=== PATIENT | female | born 1975 | race Caucasian/White ===

== ENCOUNTER 2021-10-06 09:07 | Emergency (ER) | payer OTHER ==
[~2021-10-06] VITALS: Ht 172.7 cm; Wt 100.0 kg
[2021-10-06] MEDS ORDERED: HYDROCODONE/ACETAMINOPHEN 5/325MG TABLET PO STA (09:18)
[2021-10-06] MEDS ORDERED: IBUPROFEN 800MG TABLET PO ONE (11:30)
[2021-10-06] MEDS ORDERED: MORPHINE SULFATE 4 MG/ML CPJ (NOT FOR IM USE) IV STA (12:07)
[2021-10-06 13:02] LABS: CHLORIDE 109 mEq/L (98-107)
[2021-10-06] MEDS ORDERED: MORPHINE SULFATE 10 MG/ML CPJ IM ONE (13:15)
[2021-10-06 13:39] LABS: HCG SCREEN NEGATIVE
[2021-10-06 14:24] LABS: BASOPHILS % 0.5 % (0.0-2.0); EOSINOPHILS % 0.3 % (0.0-5.0); HEMOGLOBIN. 13.3 g/dL (12.0-16.0); LYMPHOCYTES % 17.3 % (20.0-50.0); MEAN CORPUSCULAR HEMOGLOBIN 30.6 pg (28.0-32.0); MEAN CORPUSCULAR VOLUME 91.9 fL (81.0-99.0); MEAN PLATELET VOLUME 7.9 fl (7.4-10.4); MONOCYTES % 4.4 % (2.0-8.0); NEUTROPHILS % 77.5 % (40.0-76.0); PLATELET 262 x1000/uL (130-400); RED BLOOD CELL COUNT 4.35 mill/uL (4.2-5.4); RED CELL DISTRIBUTION WIDTH 14.1 % (11.6-14.6)
[2021-10-06] MEDS ORDERED: ACET-2708 MT (15:12)
[2021-10-06] MEDS ORDERED: BACL-141 MT (15:12)
[2021-10-06 15:15] VITALS: BP 118/73
== END 2021-10-06 15:36 | disposition home or self-care (01) ==
LOC: ER 09:07
DX: S49.81XA Other specified injuries of right shoulder and upper arm, initial encounter (principal); R07.89 Other chest pain; G89.11 Acute pain due to trauma; M25.552 Pain in left hip; M79.662 Pain in left lower leg; V49.49XA Driver injured in collision with other motor vehicles in traffic accident, initial encounter; Y93.89 Activity, other specified; Y92.488 Other paved roadways as the place of occurrence of the external cause
CPT/HCPCS: 36415; 71045; 73030; 73502; 73552; 80053; 84484; 84703; 85025; 93005; 96372; 99285; J2270